=== PATIENT | female | born 1990 | race Caucasian/White ===

== ENCOUNTER 2022-10-19 08:15 | Outpatient (CLI) | payer OTHER, SELFPAY ==
--- NOTE | 2022-10-19 08:15 | CRLHL7_ITS ---
For Patients: As a result of the Century Cures Act, medical imaging exams and procedure reports are released immediately into your electronic medical record. You may view this report before your referring provider. If you have questions, please contact your health care provider. INDICATION: First trimester scan, establish dates. COMPARISON: None. TECHNIQUE: Real-time mcrae-scale imaging of the pelvis was performed. FINDINGS: Sonographic imaging demonstrates a single living intrauterine gestation. The embryo demonstrates a regular cardiac rate measuring 178 beats per minute. The embryo`s crown-rump length measurement of 2.6 cm corresponds to a gestational age of 9 weeks 2 days with a sonographic due date of 05/22/2023. There is a normal-appearing yolk sac. There are no gross abnormalities noted within the embryo at this early state of development. The gestational sac has a normal appearance. There is a 1.0 x 0.7 x 1.4 cm perigestational hemorrhage. The amount of fluid within the sac appears appropriate for gestational age. The cervix is closed. The myometrium appears normal. The ovaries are of normal size. Corpus luteal cyst right ovary. There are no suspicious fluid collections noted in the cul-de-sac. IMPRESSION: Single living intrauterine with sonographic gestational age 9 weeks 2 days and sonographic due date of 05/22/2023. Inferior subchorionic hemorrhage measuring 1.0 x 0.7 x 1.4 cm. Dictated by Lalito Pierre MD @ 10/19/2022 9:48:32 AM (Electronically Signed)
== END 2022-10-19 08:16 | disposition home or self-care (01) ==
LOC: US 08:17
PROVIDERS: Visit Provider Advanced Practice Midwife
DX: Z34.91 Encounter for supervision of normal pregnancy, unspecified, first trimester (principal); Z3A.09 9 weeks gestation of pregnancy
CPT/HCPCS: 76817; 86703; 86803; 86850; 86900; 86901; 87086; 87340

== ENCOUNTER 2022-10-19 09:37 | Outpatient (CLI) | payer OTHER, SELFPAY | END 2022-10-19 09:38 | disposition home or self-care (01) | PROVIDERS: Visit Provider Advanced Practice Midwife | DX: Z34.91 Encounter for supervision of normal pregnancy, unspecified, first trimester (principal); O20.9 Hemorrhage in early pregnancy, unspecified; Z3A.09 9 weeks gestation of pregnancy | CPT/HCPCS: 86592; 86703; 86762; 86787; 86803; 86850; 86900; 86901; 87086; 87340 ==

== ENCOUNTER 2023-01-07 09:08 | Outpatient (CLI) | payer OTHER, SELFPAY ==
--- NOTE | 2023-01-07 09:15 | CRLHL7_ITS ---
For Patients: As a result of the Century Cures Act, medical imaging exams and procedure reports are released immediately into your electronic medical record. You may view this report before your referring provider. If you have questions, please contact your health care provider. INDICATION: Evaluate anatomy. COMPARISON: 10/19/2022 TECHNIQUE: Real time mcrae scale imaging of the fetus was performed as well as color Doppler analysis of the umbilical vessels. FINDINGS: Sonographic imaging demonstrates a single living intrauterine gestation. Fetus demonstrates a regular cardiac rate of 138 beats per minute. Fetus has a vertex position. The placenta lies right anterior without evidence of placenta previa. The placental edge is 5.8 cm from the internal cervical os. Amniotic fluid volume appears normal. Single deepest vertical pocket: 4.2 cm. The cervix is closed and measures 3.3 cm in length. The composite ultrasound gestational age is calculated at 21 weeks 6 days with an estimated sonographic due date of 05/14/2023. The estimated weight is 436 grams which lies at the 83rd %. The following biometric measurements were obtained: Biparietal diameter: 5.2 cm/21 weeks 5 days 82nd% Head circumference: 19.9 cm/22 weeks 0 days 87th% Abdominal circumference: 16.3 cm/21 weeks 3 days 60th% Femur length: 3.7 cm/21 weeks 5 days 72nd% The HC/AC ratio measures: 1.22 range (1.06-1.23) On anatomic survey, there is a normal appearance of the cerebral ventricles, cavum septi pellucidi, cisterna magna and cerebellum. The nose, lips and profile are incompletely visualized due to overlying cord and position. The cervical, thoracic and lumbar spine are well visualized and appear normal. There is a normal four-chamber heart view and the left and right ventricular outflow tracts appear normal. The diaphragm and stomach appear normal. The kidneys and bladder also appear normal. There is a normal three-vessel cord and there is an eccentric cord insertion site. The four extremities appear normal. IMPRESSION: Sonographic gestational age 21 weeks 6 days and sonographic due date 05/14/2023. Sonographic age is 7 days ahead of the clinical age. Incomplete visualization of the profile and nose/lips. Remainder of the anatomic survey normal. Short-term follow-up recommended. Dictated by Lalito Pierre MD @ 01/07/2023 2:27:58 PM (Electronically Signed)
== END 2023-01-07 09:09 | disposition home or self-care (01) ==
LOC: US 09:10
PROVIDERS: Visit Provider Advanced Practice Midwife
DX: Z34.92 Encounter for supervision of normal pregnancy, unspecified, second trimester (principal); Z3A.21 21 weeks gestation of pregnancy
CPT/HCPCS: 76805

== ENCOUNTER 2023-02-25 10:44 | Outpatient (CLI) | payer BC, SELFPAY | END 2023-02-25 10:45 | disposition home or self-care (01) | PROVIDERS: Visit Provider Advanced Practice Midwife | DX: Z34.93 Encounter for supervision of normal pregnancy, unspecified, third trimester (principal) | CPT/HCPCS: 86592 ==

== ENCOUNTER 2023-04-26 09:59 | Outpatient (CLI) | payer BC, SELFPAY ==
[2023-04-27 14:06] LABS: Strep B DNA Probe Negative (Negative)
[2023-04-28 03:52] LABS: Strep B Susceptibility Needed? No
== END 2023-04-26 10:00 | disposition home or self-care (01) ==
LOC: NFLDREF 09:59
PROVIDERS: Visit Provider Advanced Practice Midwife
DX: Z34.93 Encounter for supervision of normal pregnancy, unspecified, third trimester (principal); Z3A.36 36 weeks gestation of pregnancy
CPT/HCPCS: 87081; 87653

== ENCOUNTER 2023-05-18 12:18 | Inpatient (IN) | payer BC, SELFPAY ==
[2023-05-18] VITALS (18 sets, daily range): BP systolic 96–123; BP diastolic 55–73; PULSE 72–156; RESP 16; TEMP 36.6–37.1; O2SAT 79–99; BMI 27.0
[2023-05-18 11:58] LABS: Amnisure Rom* POSITIVE
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
[2023-05-18 13:35] LABS: Basophils Percent Auto 0.2 % (0.0-3.0); Eosinophils Percent Auto 0.4 % (0.0-7.0); Hematocrit 34.7 % (33.0-51.0); Hemoglobin* 12.1 gm/dL (12.0-16.0); Immature Granulocytes Pct Auto 0.4 %; Lymphocytes Percent Auto 11.9 % (20-44); Mean Corpuscular HGB Conc 35 gm/dL (32-36); Mean Corpuscular Hemoglobin 31 pg (26-34); Mean Corpuscular Volume 89 fL (80-100); Monocytes Percent Auto 8.6 % (0.0-11.0); Neutrophils Percent Auto 78.5 % (42.0-72.0); Platelet Count* 173 K/uL (140-440); RDW Coefficient of Variation % 12.6 % (11.5-15.5); Red Blood Count 3.92 m/uL (4.00-5.20); White Blood Count* 12.65 K/uL (4.50-11.00)
[2023-05-18 13:40] LABS: Slide Review Reflex No
[2023-05-18] MEDS: OXYTOCIN 30 unit/500 ML in NS 30 UNIT/500 ML BAG IVPB (20:26)
[2023-05-18] MEDS: LACTATED RINGERS 1000 ML 1,000 ML 125 ML IV (20:27)
[2023-05-18] MEDS: MORPHINE 10 MG/ML inj IM (20:27)
[2023-05-18] MEDS: hydrOXYzine pamoate 25 MG CAPSULE 100 MG PO (20:27)
[2023-05-19] VITALS (91 sets, daily range): BP systolic 81–166; BP diastolic 46–113; PULSE 65–109; RESP 16; TEMP 36.6–37.2; O2SAT 93–99
[2023-05-19] MEDS: LIDOCAINE 2% (PF) 5 ML VIAL EPIDURAL (00:36)
[2023-05-19] MEDS: ROPIVACAINE 0.2 % PF 10 ML INJ 20 MG EPIDURAL (00:36)
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
[2023-05-19] MEDS: ROPIVACAINE 0.2% 100 ml 100 ML 12 MG EPIDURAL (00:42)
[2023-05-19] MEDS: LACTATED RINGERS 1000 ML 1,000 ML 125 ML IV ×2 (00:47→04:10)
[2023-05-19] MEDS: PHENYLEPHRINE 100 MCG/ML SYRINGE IVP ×3 (01:35→02:23)
--- NOTE | 2023-05-19 07:34 | W.PM.VAGDE_ITS ---
OB Procedure Vag Delivery Mother Details Mother Details: The patient is a 33 year-old, 1, now Para 1, admitted on 05/18/23 at 39 4/7 weeks gestation. : 1 Para: 1 Weeks Gestation: 39.5 Admission Date: 05/18/23 Additional Details Amniotic Membrane Status: SROM Amniotic Membrane Rupture Date: 05/18/23 Amniotic Membrane Rupture Time: 10:00 Amniotic Membrane Fluid Description: Clear Analgesia/Anesthesia Type: Epidural Waterbirth: No Pitcoin: Yes Intrapartal Events: Labor Augmentation and ROM >18 Hours Delivery augmentation: pitocin Labor Onset: 01:15 Complete: 04:40 Pushin:49 Heart: heart tones during second stage were category II with good return to baseline between contractions and notable variables with contractions. Broken FHR during many contractions but baseline between was WNL range. Moderate variability throughout labor with minimal variability noted predominately during pushing. Delivery Details Delivery Date: 05/19/23 Delivery Time: 07:01 Route of delivery: Gender: Male Infant Viability: Alive; Heart Rate Present Position at Delivery: OA Delivery Details: Patient was admitted for PROM and progressed with augmentation of pitocin after minimal change with expectant management. SROM noted at 05/18/2023 at 10 am with clear fluid. Patient was complete at 0440 and pushing at 0549. of a viable male at 0701 in semi-fowlers left tilt on the bed. Vertex delivered OA. No nuchal cord or shoulder. Body delivered easily and without incident. Infant passed to mothers abdomen with a vigorous cry. Cord was clamped and cut at > 5 minutes. APGARS were 8 at one minute and 9 at five minutes respectively. Mouth was bulb suctioned. Intact placenta with a 3 vessel cord delivered spontaneously at 0713. Fundus firm. Shallow 2nd degree identified and repaired in typical fa shion. Left periurethral abrasion, not repaired. QBL 50 cc. Mother and baby stable; mother plans to breastfeed. Infant weight pending. 1 Minute Interval Total Score: 8 5 Minute Interval Total Score: 9 Additional Details Shoulder Dystocia: No Placenta Delivery Time: 07:13 Placental Delivery Description: Spontaneous Delivery repair: Vicryl Procedure Done: Global Blood Loss: 50 Laceration: Perineal - 2nd Degree Blood Loss Measurement Type: QBL Sponge/Need Count Correct: Yes Cord Vessel Description: 3 Vessels Event Summary Status: Mother and infant were stable after delivery. Disposition: floor
--- NOTE | 2023-05-19 11:00 | PM.ANPOST ---
Post Anesthesia Note Post Anesthesia Note Patient seen: Inpatient Respiratory Status: adequate Cardiovascular Status: adequate Mental Status: baseline Pain: adequate Temp: baseline Anesthetic awareness: N/A Complications: none Follow care: none
[2023-05-19] MEDS: DOCUSATE SODIUM 100 MG CAPSULE PO (13:59)
[2023-05-20 00:15] VITALS: BP 103/63; PULSE 85; RESP 12; TEMP 36.6
[2023-05-20 01:12] LABS: Rapid Plasma Reagin (RPR) Non Reactive (Non Reactive)
--- NOTE | 2023-05-20 08:10 | PM.OBDSVD1 ---
DS: Providers Provider Date Seen: 05/20/23 Date of admission: 05/18/23 12:18 Primary care physician: Not a Local Provider Admitting Clinician: Flower Goodrich MD Attending Physician on discharge: Nicola Astorga CNM Date of Discharge: 05/20/23 DS: Diagnosis Discharge Diagnosis (1) care and examination immediately after delivery: Status: Acute (2) Lactating mother: Status: Acute Exam Narrative: Exam Narrative: VSS, afebrile GENERAL APPEARANCE: ?normal affect, alert, no distress MOOD: ?appropriate HEENT: normocephalic, neck supple, full ROM CHEST: ?Symmetrical chest wall movement. ?Normal respiratory effort. ?Clear to auscultation HEART: ?regular rate and rhythm ABDOMEN: ?soft, non-tender. Uterine fundus is firm, at Umbilicus, Midline and is appropriate for the stage of recovery. ?Bowel sounds present. PERINEUM: ?mild edema of the perineum, there is a 2nd degree laceration that is healing well. EXTREMITIES: ?normal and no edema Const: Vital Signs, click to edit/add: Vital Signs - 24 hr 05/19/23 08:14 05/19/23 08:29 05/19/23 08:44 Temperature Pulse Rate 81 104 H 89 Pulse Rate [Pulse Oximeter] Respiratory Rate Blood Pressure 99/56 L 105/63 104/55 L Blood Pressure [Ri ght Arm] Pulse Oximetry Oxygen Delivery Me thod 05/19/23 08:59 05/19/23 13:42 05/19/23 17:06 Temperature 98.8 F 97.9 F Pulse Rate 84 Pulse Rate [Pulse Oximeter] 91 79 Respiratory Rate 16 16 Blood Pressure 102/57 L Blood Pressure [Ri ght Arm] 100/63 103/66 Pulse Oximetry 97 97 Oxygen Delivery Me thod Room Air Room Air 05/19/23 20:24 05/20/23 00:15 Temperature 97.8 F 97.8 F Pulse Rate Pulse Rate [Pulse Oximeter] 80 85 Respiratory Rate 16 12 Blood Pressure Blood Pressure [Ri ght Arm] 100/63 103/63 Pulse Oximetry Oxygen Delivery Me thod Documenting provider has reviewed patient's vital signs: yes OB - DS: Summary Hospital Course Hospital Course: Keisha is a 33 y.o. who was admitted to [facility] & [facility] for labor. ?She had an uncomplicated NVD.?The patient feels well. ?The pain is well controlled with current medications. ?She has no new complaints. ?She is breast feeding and reports things are going well.?She would like to see today before discharge. the patient has done well.? Vitals have been stable.? She has remained afebrile.? Has a good appetite, is tolerating a general diet. ?She is voiding without difficulty.? She is passing gas and has not yet had a bowel movement.? She is ambulating and denies any dizziness.? Has Small amount of rubra lochia. ?She is planning NFP for prevention. Peripartum Data delivery method: Vaginal Laceration description: Perineal - 2nd Degree complications: none Infant Gender: Male Discharge Plan: Home Status at Discharge Functional status at discharge: independent ambulation Overall status at discharge: patient is progressing back to baseline Time Spent with Patient Time attestation: Total time spent providing and/or coordinating discharge services: Time spent: Less than 30 minutes Discharge Plan Discharge Disposition: Home, Self-Care Date of Admission: 05/18/23 12:18 Attending Provider on Discharge: Nicola Astorga Primary Care Provider: Provider,Not a Local Condition: Stable Anticipated Discharge Date/Time: 05/20/23 12:00 Discharge Medications: New acetaminophen 500 mg Tablet 1,000 mg PO Q6H PRNQty: 0 0RF docusate sodium 100 mg Capsule 100 mg PO DAILY Qty: 90 2RF ibuprofen 600 mg Tablet 600 mg PO Q6H PRNQty: 60 0RF Continued DHA 200 mg capsule 200 mg PO DAILY Discontinued valacyclovir [Valtrex] 500 mg tablet 500 mg PO BID Qty: 60 1RF Discharge Orders: Discharge Order (Routine); Ordered 05/20/23 Ordered By: Nicola Astorga Patient Education: OB Over the Counter Medication Information, OB Vaginal/Breast Feeding Additional Instructions: Discharge instructions were reviewed with the patient including signs and symptoms of infection and home going medications Nothing vaginally for 6 weeks: no tampons or intercourse Off Work or School for 6 weeks 2-week visit: discuss feeding concerns, review control options and screen for anxiety/depression. 6-week visit for an annual exam. consultation services are available to all mothers and babies for the first year after delivery.? To make an appointment, please call [phone]. Activity Level: Activity as Tolerated Discharge Diet: Regular Follow Up Appointments: Provider,Not a Local [Primary Care Provider] - [facility] [Provider Group] Forms: [facility] Info Instructions
[2023-05-20 08:40] VITALS: BP 103/66; PULSE 80; RESP 12; TEMP 36.6
[2023-05-20] MEDS: DOCUSATE SODIUM 100 MG CAPSULE PO (08:47)
== END 2023-05-20 13:30 | disposition home or self-care (01) | DRG 560 ==
LOC: OB OUT 12:19 → OB 12:19
PROVIDERS: Admitting Provider Obstetrics & Gynecology; Visit Provider Obstetrics & Gynecology
DX: O70.1 Second degree perineal laceration during delivery (principal); O98.32 Other infections with a predominantly sexual mode of transmission complicating childbirth; Z3A.39 39 weeks gestation of pregnancy; Z37.0 Single live birth; A60.00 Herpesviral infection of urogenital system, unspecified
CPT/HCPCS: 01967; 36415; 84112; 85025; 86592; 86850; 86900; 86901; A9270; J2270; J2371; J2795; J7120

== ENCOUNTER 2025-02-20 09:58 | Outpatient (CLI) | payer BC, SELFPAY ==
--- NOTE | 2025-02-20 10:15 | CRLHL7_ITS ---
For Patients: As a result of the Century Cures Act, medical imaging exams and procedure reports are released immediately into your electronic medical record. You may view this report before your referring provider. If you have questions, please contact your health care provider. OB ULTRASOUND LESS THAN 14 WEEKS CLINICAL HISTORY: Dating and viability. TECHNIQUE: Grayscale and color Doppler ultrasound of the uterus and ovaries from a transvaginal approach. Transvaginal ultrasound of the pelvis was performed to better evaluate the genitourinary organs such as the ovaries and/or endometrium. COMPARISON: None. FINDINGS: Imaging: TV. LMP: 12/16/2024. JENNY by LMP: 09/22/2025. GA: 9 weeks 3 days. CRL: 1.0 cm, 8 weeks 3 days. JENNY 09/29/2025. FHR: N/A. GEST SAC: 3.7 cm, appears WNL. YOLK SAC: 4.6 mm, appears WNL. RIGHT OV: 3.7 x 2.3 x 2.0 cm. LEFT OV: 4.5 x 2.5 x 2.4 cm. IMPRESSION: Intrauterine gestational sac is present containing a pole with the crown rump length measuring 1.9 cm, 8 weeks 3 days. No heart tones. This is consistent with a nonviable gestation. Lalito Pierre M.D. Diagnostic Radiologist [email or web address] Transcribed: 12:20 pm DW/Dictated by: Lalito Pierre MD @ 02/20/2025 11:17:00 AM (Electronically Signed)
== END 2025-02-20 09:59 | disposition home or self-care (01) ==
LOC: US 10:00
PROVIDERS: Visit Provider Registered Nurse
DX: O36.80X0 Pregnancy with inconclusive fetal viability, not applicable or unspecified (principal)
CPT/HCPCS: 76817